=== PATIENT | female | born 1950 | race Caucasian/White ===

== ENCOUNTER → 2024-02-18 07:24 | Outpatient (CLI) | payer MEDICARE, SELFPAY ==
--- NOTE | 2024-02-18 07:29 | DI.RAD.S_ITS ---
PROCEDURE: XR CHEST 2V INDICATIONS: Dyspnea, h/o CAD s/p CABG x3 TECHNIQUE: 2 views of the chest were acquired. COMPARISON: None. FINDINGS: Surgical changes and devices: Sternotomy wires and mediastinal clips are present. Lungs and pleura: Lungs are clear. No pleural effusions or pneumothorax. Mediastinum: Mediastinal contours are normal. Heart size is normal. Bones and chest wall: No suspicious bony abnormalities. Soft tissues appear unremarkable. IMPRESSION: No acute cardiopulmonary abnormality is seen. Approved by: Darian Johnson M.D. on 02/18/2024 at 13:43
--- NOTE | 2024-02-18 08:07 | EKG_ITS ---
[place] [address] [place] [id number] Test Date: 2024-02-18 Pat Name: Elina العلي Department: [facility] Room: Gender: Female President [place]: CHACHO : 1950 Requested By: Order Number: [id number] Reading MD: Omkar Aponte Measurements Intervals [place] Rate: 67 P: 76 MN: 136 QRS: -25 QRSD: 72 T: 33 QT: 398 QTc: 420 Interpretive Statements Normal sinus rhythm Minimal voltage criteria for LVH, may be normal variant ( R in aVL ) Electronically Signed On 02-19-2024 16:16:36 PDT by Omkar Aponte
[2024-02-18 08:34] LABS: Add Manual Diff / Slide Review NO; Basophils Absolute Auto 100 /uL (0-100); Eosinophils Absolute Auto 200 /uL (0-450); Eosinophils Percent Auto 2.5 % (2-4); Hematocrit 39.7 % (36-46); Hemoglobin 13.1 g/dL (12.0-16.0); Lymphocytes Absolute Auto 2300 /uL (1100-4500); Lymphocytes Percent Auto 26.9 % (25-40); Mean Corpuscular Hemoglobin 26.9 PG (26-34); Mean Corpuscular Volume 81.6 fL (80-100); Monocytes Absolute Auto 700 /uL (0-900); Monocytes Percent Auto 7.8 % (3-14); Neutrophils Absolute Auto 5400 /uL (1500-7000); Neutrophils Percent Auto 61.8 % (50-75); Platelet Count 262 X10^3/uL (150-400); Red Blood Cell Count 4.86 X10^6/uL (4.0-5.2); Red Cell Distribution Width 15.1 % (11.6-14.8); White Blood Cell Count 8.7 X10^3/uL (4.5-11.0)
[2024-02-18 08:46] LABS: Alanine Aminotransferase 13 IU/L (<35); Albumin 3.7 g/dL (3.5-5.0); Albumin Globulin Ratio 1.1 (1.0-2.8); Alkaline Phosphatase 94 U/L (38-126); Aspartate Aminotransferase 19 IU/L (14-36); BUN Creatinine Ratio 14.7 (6-22); Bilirubin Total 0.6 mg/dL (0.2-1.3); Blood Urea Nitrogen 11 mg/dL (7-17); Calcium 8.9 mg/dL (8.4-10.2); Carbon Dioxide 25 mmol/L (22-32); Chloride 108 mmol/L (98-107); Cholesterol 144 mg/dL (140-199); Estimated Glomerular Filt Rate > 60 mL/min (>60); Globulin 3.4 g/dL (1.7-4.1); Glucose 127 mg/dL (80-110); HDL Cholesterol 44 mg/dL (40-60); HEMOLYSIS < 15 (0-50); LDL Cholesterol Calculated 76 mg/dL (<100); Potassium 4.9 mmol/L (3.4-5.1); Sodium 138 mmol/L (137-145); Total Protein 7.1 g/dL (6.3-8.2); Triglycerides 122 mg/dL (35-150)
[2024-02-18 08:54] LABS: NT-proBNP (BNP-Adult 18+) 603 pg/mL (<125)
[2024-02-18 18:11] LABS: Hep C Virus Ab w/Reflex Quant NEGATIVE s/c (NEGATIVE)
== END ==
PROVIDERS: PCP Family Medicine; Referring Provider Family Medicine; Visit Provider Family Medicine
DX: Z11.59 Encounter for screening for other viral diseases (principal); I25.10 Atherosclerotic heart disease of native coronary artery without angina pectoris; R06.00 Dyspnea, unspecified; R53.83 Other fatigue; E78.5 Hyperlipidemia, unspecified
CPT/HCPCS: 36415; 71046; 80053; 80061; 83880; 85025; 86803; 93005

== ENCOUNTER → 2024-04-20 07:51 | Outpatient (CLI) | payer MEDICARE, SELFPAY ==
--- NOTE | 2024-04-20 07:52 | DI.ECHO.S_ITS ---
[place] [facility] : : [address] : : [place] : : [id number] : : Phone: [phone] Echocardiogram Report + + :Name: CRISTOPHER DAWKINS Study Date: 04/20/2024 Height: 61 in : :[facility] ReadingLocation: Weight: 165 lb : : Gender: Female BSA: 1.7 m2 : :: 1950 Age: 73 yrs BP: 152/82 mmHg: :Reason For Study: DYSPNEA : :Ordering Physician: CARRIE, : :CALDERON Lay Performed By: Kristy Anguiano : :Referring: CALDERON BUTLER : + + Interpretation Summary The ejection fraction is estimated to be 60-65%. The mitral valve leaflets are mildly calcified. There is trace mitral regurgitation. There is mild aortic valve sclerosis. There is mild tricuspid regurgitation. The right ventricular systolic pressure is estimated to be at least 25 mmHg based on an estimated right atrial pressure of 3 mm Hg. Procedure: A two-dimensional transthoracic echocardiogram with color flow and Doppler was performed. The study quality was technically difficult. There is no prior echocardiogram noted for this patient. The patient was in sinus rhythm with heart rates between 60-76 bpm during the exam. Left Ventricle: The left ventricle is normal in size and wall thickness. The ejection fraction is estimated to be 60-65%. Left ventricular wall motion is normal. Right Ventricle: The right ventricle is normal in size and function. Atria: The left atrial size is normal. Right atrial size is normal. There is no Doppler evidence for an interatrial shunt. Mitral Valve: There is mild mitral annular calcification. The mitral valve leaflets are mildly calcified. There is trace mitral regurgitation. Aortic Valve: The aortic valve is trileaflet. The aortic valve is mildly calcified. There is mild aortic valve sclerosis. There is no aortic valve stenosis. No aortic regurgitation is present. Tricuspid Valve: The tricuspid valve is normal in structure and function. There is mild tricuspid regurgitation. The right ventricular systolic pressure is estimated to be at least 25 mmHg based on an estimated right atrial pressure of 3 mm Hg. Pulmonic Valve: The pulmonic valve leaflets are thin and pliable; valve motion is normal. There is trace pulmonic regurgitation. Great Vessels: The aortic root is normal size. The dimensions of the ascending aorta are normal. The IVC is of normal diameter and collapses greater than 50% with a sniff. This suggests a low right atrial pressure of 3 mm Hg. Pericardium/ Pleura There is no pericardial effusion. There is no pleural effusion. MMode/2D Measurements & Calculations LVIDd: 4.2 cm LVOT diam: 2.0 cm LVIDs: 2.7 cm Ao root diam: 2.9 cm FS: 34.5 % asc Aorta Diam: 3.2 cm EPSS: 0.73 cm Ao Arch Diam (Prox Trans): 1.5 cm IVSd: 0.98 cm LVPWd: 0.85 cm LV powell. diameter/BSA (cm/m^2): 2.4 LV sys. diameter/BSA (cm/m^2): 1.6 LA A2 area: 12.9 cm2 RA long axis: 5.0 cm LA A4 area: 16.3 cm2 RA area: 13.5 cm2 LA length (vol): 5.1 cm RA vol: 30.6 ml LA vol: 35.1 ml RA : 17.6 ml/m2 LA vol index: 20.1 ml/m2 IVC diam: 1.1 cm RVD1 (basal): 2.7 cm RVD2 (mid): 2.4 cm TAPSE: 1.6 cm Doppler Measurements & Calculations Ao V2 max: 183.5 cm/sec LVOT Max Vivek: 110.9 cm/sec Ao V2 mean: 127.2 cm/sec LV V1 max P.9 mmHg Ao max P.5 mmHg LV V1 VTI: 25.2 cm Ao mean P.3 mmHg MIGUEL(I,D): 2.0 cm2 Ao V2 VTI: 39.1 cm MIGUEL(V,D): 1.8 cm2 sev ratio: 0.65 MIGUEL indexed to BSA (cm^2/m^2): 1.1 MV E max vivek: 79.7 cm/sec TR max vivek: 231.9 cm/sec MV A max vivek: 85.5 cm/sec TR max P.5 mmHg MV E/A: 0.93 PA V2 max: 90.4 cm/sec Med Peak E' Vivek: 4.1 cm/sec PA V2 mean: 62.4 cm/sec E/E' med: 19.5 PA mean P.7 mmHg Lat Peak E' Vivek: 8.1 cm/sec PA pr(Accel): 13.9 mmHg E/E' lat: 9.8 E/e' average: 14.6 MV dec time: 0.23 sec MVA(VTI): 2.4 cm2 MV V2 mean: 61.7 cm/sec SV(LVOT): 76.7 ml MV mean P.7 mmHg MV V2 VTI: 32.0 cm Reading Physician:09:41 AM
== END ==
LOC: ECHO 07:51
PROVIDERS: PCP Family Medicine; Referring Provider Family Medicine; Visit Provider Family Medicine
DX: I08.3 Combined rheumatic disorders of mitral, aortic and tricuspid valves (principal); I25.10 Atherosclerotic heart disease of native coronary artery without angina pectoris; E78.5 Hyperlipidemia, unspecified; R06.00 Dyspnea, unspecified; R53.83 Other fatigue; Z95.1 Presence of aortocoronary bypass graft
CPT/HCPCS: 93306

== ENCOUNTER → 2024-05-26 08:06 | Outpatient (CLI) | payer MEDICARE, SELFPAY | PROVIDERS: PCP Family Medicine; Referring Provider Family Medicine; Visit Provider Family Medicine | DX: J45.901 Unspecified asthma with (acute) exacerbation (principal); J43.8 Other emphysema; R06.02 Shortness of breath; J44.9 Chronic obstructive pulmonary disease, unspecified; F17.210 Nicotine dependence, cigarettes, uncomplicated | CPT/HCPCS: 94060; 94726; 94729 ==

== ENCOUNTER → 2024-06-29 10:57 | Outpatient (CLI) | payer MEDICARE, SELFPAY ==
--- NOTE | 2024-06-29 10:58 | DI.CT.S_ITS ---
PROCEDURE: CT CHEST WO CON INDICATIONS: Dyspnea TECHNIQUE: Noncontrast 5 mm thick sections acquired from the pulmonary apices to the posterior costophrenic angles. 1 mm lung window, 5 mm thick coronal and sagittal and 7 mm axial MIP reformats were then acquired. For radiation dose reduction, the following was used: automated exposure control, adjustment of mA and/or kV according to patient size. COMPARISON: None. FINDINGS: Image quality: Diagnostic. Lower Neck: No enlarged lymph nodes. Thyroid: No thyroid nodules which require sonographic follow up, per consensus guidelines. Axillae: No enlarged lymph nodes. Chest Wall: Moderate size subxiphoid hernia containing fat. The neck measures 2 centimeter and the sac measures 2.9 x 3.9 centimeter. Bones: Unremarkable. Lungs and Pleura: No pneumothorax or pleural effusions. A few pulmonary micro nodules are present period index nodule measures 2 millimeters in the right lung apex (series 3, image 66). Pleural parenchymal bands in the lung bases. Juxtapleural nodules with smooth margins, favoring benign intrapulmonary lymph nodes. Heart: Heart size is enlarged, with three-vessel coronary artery calcifications and stents. No pericardial effusion. A CABG is present. Thoracic Vessels: The aorta and pulmonary arteries demonstrate normal size. Mediastinum and Olamide: No enlarged lymph nodes. Esophagus: No wall thickening. No hiatal hernia. Upper Abdomen: Cholelithiasis without wall thickening or adjacent fat stranding to suggest acute cholecystitis. IMPRESSION: No findings to explain the patient's dyspnea. Pulmonary micronodules. Consider 12 month follow-up if at high risk for developing lung cancer, per Fleischner Society guidelines. Moderate size subxiphoid hernia containing fat. Cholelithiasis without wall thickening or adjacent fat stranding to suggest acute cholecystitis. Dictated by: Caleb Muro M.D. on 06/29/2024 at 11:46 Approved by: Caleb Muro M.D. on 06/29/2024 at 11:51
== END ==
PROVIDERS: PCP Family Medicine; Referring Provider Student in an Organized Health Care Education/Training Program; Visit Provider Student in an Organized Health Care Education/Training Program
DX: K43.9 Ventral hernia without obstruction or gangrene (principal); R91.8 Other nonspecific abnormal finding of lung field; R06.00 Dyspnea, unspecified; I51.7 Cardiomegaly; I25.10 Atherosclerotic heart disease of native coronary artery without angina pectoris; K80.20 Calculus of gallbladder without cholecystitis without obstruction; Z95.1 Presence of aortocoronary bypass graft
CPT/HCPCS: 71250

== ENCOUNTER → 2024-07-01 08:44 | Outpatient (CLI) | payer MEDICARE, SELFPAY ==
--- NOTE | 2024-07-01 08:46 | EKG_ITS ---
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
== END ==
PROVIDERS: PCP Family Medicine; Referring Provider Family Medicine; Visit Provider Family Medicine
DX: I49.9 Cardiac arrhythmia, unspecified (principal); I25.10 Atherosclerotic heart disease of native coronary artery without angina pectoris; Z95.1 Presence of aortocoronary bypass graft; I10 Essential (primary) hypertension
CPT/HCPCS: 93005

== ENCOUNTER 2024-07-08 13:07 | Observation (INO) | payer MEDICARE, SELFPAY ==
[2024-07-08] VITALS (38 sets, daily range): BP systolic 96–146; BP diastolic 54–95; PULSE 64–140; RESP 19–40; TEMP 36.9; O2SAT 94–99; BMI 32.0; BMI 32.3
--- NOTE | 2024-07-08 13:23 | DI.RAD.S_ITS ---
PROCEDURE: XR CHEST 1V INDICATIONS: chest pain TECHNIQUE: One view of the chest was acquired. COMPARISON: [facility], CR, XR CHEST 2V, 02/18/2024, 6:45. FINDINGS: Surgical changes and devices: Median sternotomy wires are seen. Lungs and pleura: Mild pulmonary vascular congestion is seen. No pleural effusions or pneumothorax. Mediastinum: There is tortuous thoracic aorta. Heart size is enlarged. Bones and chest wall: No suspicious bony lesions. Overlying soft tissues appear unremarkable. IMPRESSION: Cardiomegaly and mild congestion. No definite focal infiltrate. No pleural effusion or pneumothorax. Dictated by: Logan Nair M.D. on 07/08/2024 at 13:50 Approved by: Logan Nair M.D. on 07/08/2024 at 13:50
--- NOTE | 2024-07-08 13:24 | EKG_ITS ---
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
[2024-07-08 13:39] LABS: INR 1.1 (0.9-1.3); Prothrombin Time 12.6 SECONDS (9.4-12.5)
[2024-07-08 13:42] LABS: Alanine Aminotransferase 17 IU/L (<35); Albumin 3.8 g/dL (3.5-5.0); Albumin Globulin Ratio 1.1 (1.0-2.8); Alkaline Phosphatase 103 U/L (38-126); Aspartate Aminotransferase 18 IU/L (14-36); BUN Creatinine Ratio 11.5 (6-22); Bilirubin Total 0.5 mg/dL (0.2-1.3); Blood Urea Nitrogen 9 mg/dL (7-17); Carbon Dioxide 22 mmol/L (22-32); Chloride 107 mmol/L (98-107); Creatine Kinase 55 U/L (30-135); Estimated Glomerular Filt Rate > 60 mL/min (>60); Globulin 3.5 g/dL (1.7-4.1); Glucose 153 mg/dL (80-110); HEMOLYSIS < 15 (0-50); Lipase 124 U/L (23-300); Magnesium 1.8 mg/dL (1.6-2.3); PTT Partial Thromboplastin Tim 36 SECONDS (25.1-36.5); Sodium 137 mmol/L (137-145); Total Protein 7.3 g/dL (6.3-8.2)
[2024-07-08 13:43] LABS: Add Manual Diff / Slide Review NO; Basophils Absolute Auto 0 /uL (0-100); Basophils Percent Auto 0.1 % (0-2); Eosinophils Absolute Auto 100 /uL (0-450); Eosinophils Percent Auto 1.6 % (2-4); Hematocrit 38.1 % (36-46); Hemoglobin 12.3 g/dL (12.0-16.0); Lymphocytes Absolute Auto 2500 /uL (1100-4500); Mean Corpuscular HGB Conc 32.3 % (30-36); Mean Corpuscular Hemoglobin 25.9 PG (26-34); Mean Corpuscular Volume 80.3 fL (80-100); Monocytes Absolute Auto 800 /uL (0-900); Monocytes Percent Auto 8.2 % (3-14); Neutrophils Absolute Auto 5800 /uL (1500-7000); Neutrophils Percent Auto 63.1 % (50-75); Platelet Count 349 X10^3/uL (150-400); Red Blood Cell Count 4.75 X10^6/uL (4.0-5.2); Red Cell Distribution Width 15.3 % (11.6-14.8); White Blood Cell Count 9.2 X10^3/uL (4.5-11.0)
[2024-07-08 13:54] LABS: NT-proBNP (BNP-Adult 18+) 3760 pg/mL (<125); Troponin I < 0.012 ng/mL (0.01-0.034)
[2024-07-08] MEDS: dilTIAZem 25 MG/5 ML SDV 10 MG IV (14:08)
[2024-07-08] MEDS: ACETAMINOPHEN 325 MG TABLET 650 MG PO (14:09)
--- NOTE | 2024-07-08 15:05 | ED.ARRPALP ---
HPI - Arrhythmia/Palpitations General Chief Complaint: Arrhythmia/Palpitations Stated Complaint: sent by Dr Seals for AFIB Time Seen by Provider: 07/08/24 14:02 Source: patient and RN notes reviewed Mode of arrival: Ambulatory Limitations: no limitations History of Present Illness HPI narrative: 73-year-old female history of type 2 diabetes, coronary artery disease with three-vessel CABG, dyslipidemia, GERD on aspirin 81 mg who presents for atrial fibrillation. Patient states had an outpatient EKG she has had shortness of breath for the past. Patient EKG was found to be AFib RVR and she was sent to the ED. patient states she was just had increasing exhaustion, shortness of breath she states nothing really seems to exacerbate it but actually immunized make it worse. She describes some orthopnea. She has had some chest discomfort in the past although none in the last day. Denies fevers or chills. No swelling of her extremities. She can sometimes feel her heart rate is irregular states she thought that she had a cardiac arrhythmia but had never been captured. Patient states home medications include metoprolol twice daily, gabapentin, prescription version Prilosec and aspirin 81 mg daily. States she had a three-vessel CABG 10 or 11 years ago at [facility]. Denies any drug allergies. No regular tobacco use, no regular alcohol or recreational drugs. Dr. Seals is her primary care physician. She has a appointment set up for July [address] Korey june. Related Data Home Medications Medication Instructions Recorded Confirmed evolocumab 140 mg/mL subcutaneous mg SUBCUT 03/15/24 07/01/24 syringe (Repatha Syringe) metoprolol tartrate 25 mg tablet 25 mg PO BID 03/15/24 07/01/24 omeprazole 20 mg capsule,delayed 20 mg PO BID 03/15/24 07/01/24 release cetirizine 10 mg chewable tablet 10 mg PO DAILY 04/26/24 07/01/24 Previous Rx's Medication Instructions Recorded gabapentin 300 mg capsule 600 mg (2 x 300 mg) PO BID #360 04/11/24 caps olopatadine 0.2 % eye drops 1 drp EYE-BOTH DAILY #2.5 mL 04/26/24 fluticasone propionate 50 1 spray intranasal BID #16 grams 05/27/24 mcg/actuation nasal spray,suspension (Flonase Allergy Relief) Allergies Allergy/AdvReac Type Severity Reaction Status Date / Time No Known Drug Allergies Allergy Unverified 07/01/24 07:58 Review of Systems Review of Systems ROS Unobtainable: All systems reviewed & are unremarkable except as noted in HPI and below Patient History Medical History Dyspnea Surgical History History of cardiac catheterization (11/2010) History of appendectomy History of hysterectomy (~1987) S/P CABG x 3 (03/09/14) History of carpal tunnel release of both wrists Social History marital status: number of children: 3 household members: spouse lives independently: Yes Smoking Status: Current some day smoker Tobacco: How many years used: 5 alcohol intake: current (rare) substance use type: does not use Smoking Status: Current some day smoker tobacco type: cigarettes Substance Use Type: does not use Exam Narrative Exam Narrative: GENERAL: Alert and oriented x three, well-appearing elderly female in mild distress HEENT: Head normocephalic, atraumatic, EOMI, pupils reactive, face symmetric, moist mucous membranes NECK: Supple, full range of motion CARDIOVASCULAR: Irregularly irregular and tachycardic rate and rhythm without murmurs, rubs or gallops. No edema bilateral lower extremities. RESPIRATORY: Breath sounds equal bilaterally, no wheezes rales or rhonchi. ABDOMEN: Soft, nontender. Normoactive bowel sounds all 4 quadrants. No guarding or rebound, rigidity, no mass : No CVA tenderness EXTREMITIES: Normal range of motion, no clubbing or edema. Neurovascularly intact NEUROLOGICAL: Cranial nerves II through XII grossly intact. Moving all extremities SKIN: Warm, dry, no petechiae, no rashes or lesions. Initial Vital Signs Initial Vital Signs: Vital Signs Pulse Rate 136 H 07/08/24 13:14 Respiratory Rate 19 07/08/24 13:14 Pulse Oximetry 96 07/08/24 13:14 Course Orders Ordered: ED Orders 07/08/24 13:20 Complete Blood Count AUTO DIFF Stat Comprehensive Metabolic Panel Stat Lipase Stat Magnesium Stat NT-proBNP (BNP-Adult 18+) Stat PTT Partial Thromboplastin Dannie Stat Prothrombin Time INR Stat Troponin & CK Cardiac Panel Stat 07/08/24 13:23 XR chest 1V Stat EKG-12 Lead Stat 07/08/24 15:13 EKG-12 Lead Stat Diltiazem HCl 125 mg/ Sodium (Chloride) 125 mls @ 5 mls/hr IV TITRATE MELLO; Protocol Last Admin: 07/08/24 16:09 Dose: 5 mg/hr, 5 mls/hr Discontinued Medications Acetaminophen (Acetaminophen 325 Mg Tablet) 650 mg PO NOW ONE Stop: 07/08/24 14:03 Last Admin: 07/08/24 14:09 Dose: 650 mg Documented By: NEHA Aspirin (Aspirin 81 Mg Chew Tab) 324 mg PO NOW ONE Stop: 07/08/24 13:24 Last Admin: 07/08/24 14:25 Dose: Not Given Documented By: NEHA Diltiazem HCl (Diltiazem 25 Mg/5 Ml Sdv) 10 mg IV NOW ONE Stop: 07/08/24 14:03 Last Admin: 07/08/24 14:08 Dose: 10 mg Documented By: NEHA Diltiazem HCl (Diltiazem Sr 60 Mg) 60 mg PO NOW ONE Stop: 07/08/24 15:07 Last Admin: 07/08/24 15:15 Dose: 60 mg Documented By: NEHA Vital Signs Vital signs: Vital Signs - 8 hr 07/08/24 13:14 07/08/24 13:15 07/08/24 13:15 Temperature Pulse Rate 136 H 140 H Respiratory Rate 19 20 Blood Pressure 120/95 H Pulse Oximetry 96 96 Oxygen Delivery Method 07/08/24 13:16 07/08/24 13:30 07/08/24 13:30 Temperature 98.4 F Pulse Rate 138 H 131 H Respiratory Rate 20 40 H Blood Pressure 120/95 H 122/89 Pulse Oximetry 95 98 Oxygen Delivery Method Room Air 07/08/24 14:00 07/08/24 14:00 07/08/24 14:08 Temperature Pulse Rate 121 H 136 H Respiratory Rate 30 H Blood Pressure 121/64 121/64 Pulse Oximetry 94 Oxygen Delivery Method 07/08/24 14:30 07/08/24 14:30 07/08/24 15:00 Temperature Pulse Rate 90 Respiratory Rate 31 H Blood Pressure 116/72 117/80 Pulse Oximetry 97 Oxygen Delivery Method Room Air 07/08/24 15:00 07/08/24 15:30 07/08/24 15:30 Temperature Pulse Rate 100 H 99 H Respiratory Rate 26 H 27 H Blood Pressure 126/76 Pulse Oximetry 97 97 Oxygen Delivery Method 07/08/24 16:00 07/08/24 16:00 07/08/24 16:09 Temperature Pulse Rate 117 H 117 H Respiratory Rate 29 H Blood Pressure 119/75 119/75 Pulse Oximetry 98 Oxygen Delivery Method MDM - Arrhythmia/Palpitations Lab Data 07/08/24 13:20 07/08/24 13:20 Labs: Lab Results 07/08/24 Range/Units 13:20 WBC 9.2 (4.5-11.0) X10^3/uL RBC 4.75 (4.0-5.2) X10^6/uL Hgb 12.3 (12.0-16.0) g/dL Hct 38.1 (36-46) % MCV 80.3 (80-100) fL MCH 25.9 L (26-34) PG MCHC 32.3 (30-36) % RDW 15.3 H (11.6-14.8) % Plt Count 349 (150-400) X10^3/uL Neut % (Auto) 63.1 (50-75) % Lymph % (Auto) 27.0 (25-40) % [place] % (Auto) 8.2 (3-14) % Eos % (Auto) 1.6 L (2-4) % Baso % (Auto) 0.1 (0-2) % Neut # (Auto) 5800 (6549-2542) /uL Lymph # (Auto) 2500 (0039-7078) /uL [place] # (Auto) 800 (0-900) /uL Eos # (Auto) 100 (0-450) /uL Baso # (Auto) 0 (0-100) /uL PT 12.6 H (9.4-12.5) SECONDS INR 1.1 (0.9-1.3) APTT 36 (25.1-36.5) SECONDS Sodium 137 (137-145) mmol/L Potassium 4.0 (3.4-5.1) mmol/L Chloride 107 (98-107) mmol/L Carbon Dioxide 22 (22-32) mmol/L BUN 9 (7-17) mg/dL Creatinine 0.78 (0.52-1.04) mg/dL Estimated GFR > 60 (>60) mL/min BUN/Creatinine Ratio 11.5 (6-22) Glucose 153 H (80-110) mg/dL Calcium 9.0 (8.4-10.2) mg/dL Magnesium 1.8 (1.6-2.3) mg/dL Total Bilirubin 0.5 (0.2-1.3) mg/dL AST 18 (14-36) IU/L ALT 17 (<35) IU/L Alkaline Phosphatase 103 (38-126) U/L Total Creatine Kinase 55 (30-135) U/L Troponin I < 0.012 (0.01-0.034) ng/mL NT-Pro-B Natriuret Pep 3760 H (<125) pg/mL Total Protein 7.3 (6.3-8.2) g/dL Albumin 3.8 (3.5-5.0) g/dL Globulin 3.5 (1.7-4.1) g/dL Albumin/Globulin Ratio 1.1 (1.0-2.8) Lipase 124 (23-300) U/L Imaging Data Chest x-ray: Radiologist's Impresson: [address] [address] XRay Report Signed Patient: Elina العلي MR#: [id number] : 1950 Acct:[id number] Age/Sex: 73 / F Date of Service: 07/08/24 Loc: ED Accession Number: [id number] Procedure: XR chest 1V Ordering Provider: Lana Yap D.O. PROCEDURE: XR CHEST 1V INDICATIONS: chest pain TECHNIQUE: One view of the chest was acquired. COMPARISON: [facility], CR, XR CHEST 2V, 02/18/2024, 6:45. FINDINGS: Surgical changes and devices: Median sternotomy wires are seen. Lungs and pleura: Mild pulmonary vascular congestion is seen. No pleural effusions or pneumothorax. Mediastinum: There is tortuous thoracic aorta. Heart size is enlarged. Bones and chest wall: No suspicious bony lesions. Overlying soft tissues appear unremarkable. IMPRESSION: Cardiomegaly and mild congestion. No definite focal infiltrate. No pleural effusion or pneumothorax. Dictated by: Logan Nair M.D. on 07/08/2024 at 13:50 Approved by: Logan Nair M.D. on 07/08/2024 at 13:50 ECG Data Attestation: I personally reviewed and interpreted this ECG as follows: Interpretation: Atrial fib with a rapid ventricular response with a rate of 120, QRS is 74 QTC of 409, no acute ST elevation or depression noted. Repeat EKG shows AFib rate 84, QRS is 74 QTC of 434, no acute ST elevation or depression noted. MDM Narrative Medical decision making narrative: 73-year-old female presents for AFib RVR with a complaint of shortness of breath and irregular heartbeat for some time, patient is not a candidate for cardioversion as unknown onset her EKG was approximately a week ago on 07/01/2024 which showed her initial atrial fibrillation and she describes systems for some time. Patient did respond to initial dose of IV diltiazem but then had recurrence into tachycardia. Labs show white count of 9.2 hemoglobin of 12.3 platelets of 349. Coags are negative electrolytes are normal, BUN is 9, creatinine 0.78, Mag is 1.8, potassium is 4. Troponins less than 0.012 with a BNP of 3760, it was 603 in January. Chest x-ray shows cardiomegaly and mild congestion, no focal infiltrates no pleural effusion or pneumothorax. EKG shows AFib RVR, patient did have improvement in rate with medication but then recurred into RVR. Patient received 10 mg diltiazem had some improvement given a dose of oral diltiazem but patient had reoccurrence back into the 120s and started on drip. Consultation with Dr. Seals for admission for atrial fibrillation with RVR and CHF. Patient accepted for inpatient admission on diltiazem drip. Critical Care Time Critical Care Time Critical Care Time: Yes Total Critical Care Time: 25 Attestation: The high probability of a clinically significant, sudden or life threatening deterioration of the cardiac and pulmonary system(s) required my full and direct attention, intervention and personal management. The aggregate critical care time was [--] minutes. This time is in addition to time spent performing reported procedures but includes the following: [x] Data Review and interpretation [x] Patient assessment and monitoring of vital signs [x] Documentation [x] Medication orders and management Discharge Plan Departure Patient Disposition: Admitted As Inpatient Clinical Impression: Atrial fibrillation with rapid ventricular response, CHF exacerbation Admit Date/Time: 07/08/24 16:12 Admit Provider: Jacob Seals
--- NOTE | 2024-07-08 15:06 | PC.NURSE ---
Patient 8 beat Alissa ALLAN notified. getting repeat EKG
--- NOTE | 2024-07-08 15:13 | EKG_ITS ---
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
[2024-07-08] MEDS: dilTIAZem SR 60 MG PO (15:15)
[2024-07-08] MEDS: dilTIAZem 125 MG in SODIUM CHLORIDE 0.9% 100 ML IV (16:09)
--- NOTE | 2024-07-08 17:54 | PC.NURSE ---
Pt arrived via gurney from ED, connected to monitoring equipment, Dilt gtt infusing at 5mL/hr, HR 110-120's BP 169/110, titrated gtt to 7mL per protocol. Pt A/Ox4 able to slide from gurney to bed, oriented to room and call light system, bed low and locked, alarm on, no further pt needs at this time
--- NOTE | 2024-07-08 17:59 | P.HP_ITS ---
History of Present Illness History of Present Illness Date Patient Seen: 07/08/24 Time Patient Seen: 17:59 Chief complaint: sent by Dr Seals for AFIB Narrative: Elina is a 73-year-old female with a h/o CAD (s/p CABG x3), hyperlipidemia, GERD, allergic rhinitis, worsening SOB with dyspnea on exertion over the past year. Outpatient workup included initial EKG demonstrating normal sinus rhythm, CXR negative for consolidation, effusion, or pneumothorax. Recent NT proBNP 603 (age-appropriate cut off 900). 04/20 TTE demonstrated LVEF 60-65%, mild mitral valve calcification and regurgitation, mild aortic valve sclerosis, and mild tricuspid regurgitation. 05/27 PFT demonstrated moderate restrictive lung disease with no bronchodilator response and preserved alveolar gas exchange. 06/29 CT chest without findings to explain patient's dyspnea. She was seen in clinic 1 week ago to follow-up PFTs as part of evaluation for her SOB. At that time she was noted to have an irregular rhythm and sent for an EKG, which demonstrated AFib with RVR. She presented to the ER today to evaluate for possible cardioversion, but was deemed to be too high-risk for embolism due to presence of AFib for over 24 hours. She has an appointment with new pathological technician (Dr. Nair) set up for 07/22. ER workup notable for WBC 9.2, hemoglobin 12.3, platelets 349, coags and electrolytes normal, creatinine 0.78, troponin negative, elevated BNP 3760 (was 603 in January). CXR shows cardiomegaly and mild congestion, no focal infiltrates, pleural effusion, or pneumothorax. EKG again demonstrates AFib with RVR. Patient did have some rate improvement with oral medication but reverted to RVR and was started on diltiazem drip and was admitted for pharmacologic rate/rhythm control. [facility] Medical History Dyspnea Surgical History History of cardiac catheterization (11/2010) History of appendectomy History of hysterectomy (~1987) S/P CABG x 3 (03/09/14) History of carpal tunnel release of both wrists Social History marital status: number of children: 3 household members: spouse lives independently: Yes Smoking Status: Current some day smoker Tobacco: How many years used: 5 alcohol intake: current substance use type: does not use Meds Home Medications and Allergies Home Medications Medication Instructions Recorded Confirmed Type metoprolol tartrate 25 mg tablet 25 mg PO BID 03/15/24 07/08/24 History omeprazole 20 mg capsule,delayed 20 mg PO BID 03/15/24 07/08/24 History release gabapentin 300 mg capsule 600 mg (2 x 300 mg) PO BID #360 04/11/24 07/08/24 Rx caps cetirizine 10 mg chewable tablet 10 mg PO DAILY 04/26/24 07/08/24 History fluticasone propionate 50 1 spray intranasal BID #16 grams 05/27/24 07/08/24 Rx mcg/actuation nasal spray,suspension (Flonase Allergy Relief) aspirin 81 mg tablet,delayed 81 mg PO DAILY thinner 07/08/24 07/08/24 History release evolocumab 140 mg/mL subcutaneous 140 mg SUBCUT 1XD 07/08/24 07/08/24 History syringe (Repatha Syringe) olopatadine 0.2 % eye drops 1 drp EYE-BOTH DAILY PRN Dry Eye(S) 07/08/24 07/08/24 History apixaban 5 mg tablet (Eliquis) 5 mg PO BID #60 tabs 07/09/24 Rx diltiazem HCl 120 mg capsule,24 120 mg PO QAM #30 caps 07/09/24 Rx hr,extended release Allergies Allergy/AdvReac Type Severity Reaction Status Date / Time No Known Drug Allergies Allergy Unverified 07/01/24 07:58 Review of Systems Review of Systems ROS: Yes All systems reviewed with the patient and are negative except as otherwise documented Exam Vital Signs (past 8 hours): - 07/08/24 13:14 07/08/24 13:15 07/08/24 13:15 Temperature Pulse Rate 136 H 140 H Respiratory Rate 19 20 Blood Pressure 120/95 H Pulse Oximetry 96 96 Oxygen Delivery Method 07/08/24 13:16 07/08/24 13:30 07/08/24 13:30 Temperature 98.4 F Pulse Rate 138 H 131 H Respiratory Rate 20 40 H Blood Pressure 120/95 H 122/89 Pulse Oximetry 95 98 Oxygen Delivery Method Room Air 07/08/24 14:00 07/08/24 14:00 07/08/24 14:08 Temperature Pulse Rate 121 H 136 H Respiratory Rate 30 H Blood Pressure 121/64 121/64 Pulse Oximetry 94 Oxygen Delivery Method 07/08/24 14:30 07/08/24 14:30 07/08/24 15:00 Temperature Pulse Rate 90 Respiratory Rate 31 H Blood Pressure 116/72 117/80 Pulse Oximetry 97 Oxygen Delivery Method Room Air 07/08/24 15:00 07/08/24 15:30 07/08/24 15:30 Temperature Pulse Rate 100 H 99 H Respiratory Rate 26 H 27 H Blood Pressure 126/76 Pulse Oximetry 97 97 Oxygen Delivery Method 07/08/24 16:00 07/08/24 16:00 07/08/24 16:09 Temperature Pulse Rate 117 H 117 H Respiratory Rate 29 H Blood Pressure 119/75 119/75 Pulse Oximetry 98 Oxygen Delivery Method 07/08/24 16:27 07/08/24 16:30 07/08/24 16:30 Temperature Pulse Rate 118 H Respiratory Rate 24 Blood Pressure 112/82 Pulse Oximetry 99 Oxygen Delivery Method Room Air 07/08/24 17:43 07/08/24 17:46 07/08/24 17:46 Temperature Pulse Rate 106 H 116 H Respiratory Rate 28 H 37 H Blood Pressure 146/69 H Pulse Oximetry 97 96 Oxygen Delivery Method Oxygen Delivery Method Room Air Narrative Exam Narrative: General: Pleasant, NAD HEENT: NC/AT, EOMI, moist membranes CV: Tachycardic, irregularly irregular rhythm, normal S1-S2, 2/6 systolic murmur at RUSB Resp: CTAB, comfortable WOB Abd: Soft, NTND, +BS Ext: No edema Skin: Sternotomy scar on chest, no rash or lesions noted Neuro: A&O x3, moves all extremities, no focal deficits Objective Labs 07/08/24 13:20 07/09/24 05:10 Labs: Laboratory Results - last 24 hr 07/08/24 13:20 WBC 9.2 RBC 4.75 Hgb 12.3 Hct 38.1 MCV 80.3 MCH 25.9 L MCHC 32.3 RDW 15.3 H Plt Count 349 Neut % (Auto) 63.1 Lymph % (Auto) 27.0 [place] % (Auto) 8.2 Eos % (Auto) 1.6 L Baso % (Auto) 0.1 Neut # (Auto) 5800 Lymph # (Auto) 2500 [place] # (Auto) 800 Eos # (Auto) 100 Baso # (Auto) 0 PT 12.6 H INR 1.1 APTT 36 Sodium 137 Potassium 4.0 Chloride 107 Carbon Dioxide 22 BUN 9 Creatinine 0.78 Estimated GFR > 60 BUN/Creatinine Ratio 11.5 Glucose 153 H Calcium 9.0 Magnesium 1.8 Total Bilirubin 0.5 AST 18 ALT 17 Alkaline Phosphatase 103 Total Creatine Kinase 55 Troponin I < 0.012 NT-Pro-B Natriuret Pep 3760 H Total Protein 7.3 Albumin 3.8 Globulin 3.5 Albumin/Globulin Ratio 1.1 Lipase 124 Assessment & Plan Assessment and plan (1) Atrial fibrillation with rapid ventricular response: Status: Acute (2) Dyspnea: Qualifiers: Dyspnea type: dyspnea on exertion Qualified Code(s): R06.09 - Other forms of dyspnea Status: Acute (3) Type 2 diabetes mellitus: Problem details: 11/18/23 A1c: 6.3% Qualifiers: Diabetes mellitus complication status: without complication Diabetes mellitus halfway insulin use: without halfway use Qualified Code(s): E11.9 - Type 2 diabetes mellitus without complications Status: Chronic (4) CAD (coronary artery disease): Problem details: 12/03/10: Stent to RCA for unstable angina 12/23/10: stents to ostium of circumflex and obtuse marginal 1 Qualifiers: Associated angina: without angina Coronary Disease-Associated Artery/Lesion type: [place] artery [place] vs. transplanted heart: [place] heart Qualified Code(s): I25.10 - Atherosclerotic heart disease of [place] coronary artery without angina pectoris Status: Chronic (5) S/P CABG x 3: Problem details: Dr. Robertson: DAVIDSON to LAD, saphenous vein grafts to posterior descending artery and obtuse marginal Status: Acute (6) Hyperlipidemia: Qualifiers: Hyperlipidemia type: unspecified Qualified Code(s): E78.5 - Hyperlipidemia, unspecified Status: Chronic (7) GERD (gastroesophageal reflux disease): Qualifiers: Esophagitis presence: esophagitis presence not specified Qualified Code(s): K21.9 - Gastro-esophageal reflux disease without esophagitis Status: Chronic (8) Chronic allergic rhinitis: Status: Chronic Assessment & Plan narrative: 73-year-old female with a h/o CAD (s/p CABG x3), hyperlipidemia, GERD, allergic rhinitis, worsening SOB and Aponte over past year found to be in AFib with RVR. #AFib with RVR #SOB #dyspnea on exertion Likely PAF over last 1-1.5 years causing worsening SOB and dyspnea over this timeframe. Temporarily responsive to p.o. medication but requiring IV drip to achieve some degree of rate control. -diltiazem gtt; monitor for response and consider switch to amiodarone if rate/rhythm control not achieved -telemetry -[id number] score of 4 (age, female sex, CAD, HTN), start Eliquis 5 mg b.i.d. #CAD s/p CABG x3 #hyperlipidemia -metoprolol 25 mg IR b.i.d. -hold home Repatha #GERD -pantoprazole 20 mg daily #allergic rhinitis -fluticasone spray PRN Dispo: ICU Diet: Heart Healthy GI ppx: PPI DVT ppx: Eliquis Code: Full PCP: Arnel MDM: Time-Based Coding :: 45 minutes spent with patient and on the chart (including review of chart, obtaining history, exam, reviewing outside data, placing orders, documenting exam and treatment plan, and counseling patient) on 07/08/2024. PROFEE Charge Codes Critical Care: [id number]
[2024-07-08 19:42] LABS: MRSA (Nasal) PCR NOT DETECTED (Not Detect)
[2024-07-08] MEDS: FLUTICASONE 120 SPRAY/16 GM SPRAY.SUSP NASAL (21:47)
[2024-07-08] MEDS: GABAPENTIN 300 MG CAPSULE 600 MG PO (21:47)
[2024-07-08] MEDS: APIXABAN 5 MG TABLET PO (21:48)
[2024-07-08] MEDS: METOPROLOL IR 25 MG TABLET PO (21:48)
[2024-07-09] VITALS (17 sets, daily range): BP systolic 85–117; BP diastolic 49–71; PULSE 20–60; RESP 17–40; TEMP 36.1–36.2; O2SAT 97–98
[2024-07-09] MEDS: ACETAMINOPHEN 325 MG TABLET 650 MG PO (00:33)
[2024-07-09] MEDS: dilTIAZem 125 MG in SODIUM CHLORIDE 0.9% 100 ML 15 MG IV (00:48)
--- NOTE | 2024-07-09 03:26 | PC.NURSE ---
pt c/o headache and was medicated w/ tylenol; up to recliner per request; pt c/o mild nausea; sbp-86; diltiazem decreased to 10mg/hr, then 15 minutes later decreased to 5mg/hr; at 5mg/hr, HR 50s and b/p 97/54(72); pt reports feeling better, with nausea relieved
[2024-07-09 05:58] LABS: BUN Creatinine Ratio 15.2 (6-22); Blood Urea Nitrogen 14 mg/dL (7-17); Calcium 8.9 mg/dL (8.4-10.2); Carbon Dioxide 23 mmol/L (22-32); Chloride 104 mmol/L (98-107); Estimated Glomerular Filt Rate > 60 mL/min (>60); Glucose 141 mg/dL (80-110); HEMOLYSIS < 15 (0-50); Potassium 4.3 mmol/L (3.4-5.1); Sodium 133 mmol/L (137-145)
[2024-07-09 06:07] LABS: NT-proBNP (BNP-Adult 18+) 2380 pg/mL (<125)
[2024-07-09] MEDS: PANTOPRAZOLE DR 20 MG TABLET PO ×2 (06:11→08:30)
--- NOTE | 2024-07-09 06:52 | PC.NURSE ---
0647--pt converted from a-fib to NSR/sinus marlen; EKG ordered
--- NOTE | 2024-07-09 06:58 | EKG_ITS ---
[facility] [address] [place] [address] Test Date: 2024-07-09 Pat Name: Elina العلي Department: [facility] Room: 227 Gender: Female Corporate Associate: katrina : 1950 Requested By: Order Number: [id number] Reading MD: Michelet King MD Measurements Intervals [place] Rate: 53 P: 80 W[place]: 214 QRS: -24 QRSD: 78 T: -5 QT: 464 QTc: 435 Interpretive Statements Sinus bradycardia with 1st degree AV block Minimal voltage criteria for LVH, may be normal variant ( R in aVL ) Anterior infarct , age undetermined Electronically Signed On 07-10-2024 13:40:10 PST by Michelet King MD
[2024-07-09] MEDS: METOPROLOL IR 25 MG TABLET PO (08:29)
[2024-07-09] MEDS: APIXABAN 5 MG TABLET PO (08:29)
[2024-07-09] MEDS: GABAPENTIN 300 MG CAPSULE 600 MG PO (08:29)
[2024-07-09] MEDS: ASPIRIN EC 81 MG TABLET PO (08:30)
[2024-07-09] MEDS: FLUTICASONE 120 SPRAY/16 GM SPRAY.SUSP NASAL (08:30)
[2024-07-09] MEDS: dilTIAZem 30 MG TABLET 120 MG PO (09:48)
--- NOTE | 2024-07-09 10:41 | CM.DANOTE ---
B DCP Assessment Note Pt is a 73yo F here with afib with RVR and CHF. PCP Arnel Payer [employer] [facility] advantage and self pay [employer] TECHNICIAN reviewed EMR. per chart, pt lives in [place] with spouse. Emergency contact is listed at dtr [place] ([phone]). per RN report, pt indep at baseline, no CM needs. Per Dr. Seals, plan to dc pt home today, no CM needs P: pt to dc home today with OP f/u recommended, no identified barriers to safe dc home at this time. CM team will continue to follow as needed SKYLER Kilpatrick Discharge Planning/Care Management CM Discharge Assessment Start: 07/09/24 10:35 Freq: Status: Active Protocol: Document 07/09/24 10:35 SL (Rec: 07/09/24 10:40 SL [id number]) Discharge Planning Assessment Assigned Box Toe Maker SKYLER Neely DPOA/Assigned Designee Name Dixie lisset Contact Information [phone] Advance Directives? No History Provided By Patient,Medical Record Prior Living Arrangements House Household Members spouse Independent with ADL's Yes Is patient alert and oriented? Yes Barriers to Discharge No Discharge Plan Home Referrals Initiated None needed Review Status In Process Please Provide Date Initial DC 07/09/24 Assessment Was Performed Next Review Type Continued Stay Review
--- NOTE | 2024-07-09 11:20 | PM.DS.1 ---
History of Present Illness History of Present Illness Date Patient Seen: 07/09/24 Time Patient Seen: 10:00 Chief complaint: sent by Dr Saels for AFIB Narrative: Elina is a 73-year-old female with a h/o CAD (s/p CABG x3), hyperlipidemia, GERD, allergic rhinitis, worsening SOB with dyspnea on exertion over the past year. Outpatient workup included initial EKG demonstrating normal sinus rhythm, CXR negative for consolidation, effusion, or pneumothorax. Recent NT proBNP 603 (age-appropriate cut off 900). 04/20 TTE demonstrated LVEF 60-65%, mild mitral valve calcification and regurgitation, mild aortic valve sclerosis, and mild tricuspid regurgitation. 05/27 PFT demonstrated moderate restrictive lung disease with no bronchodilator response and preserved alveolar gas exchange. 06/29 CT chest without findings to explain patient's dyspnea. She was seen in clinic 1 week ago to follow-up PFTs as part of evaluation for her SOB. At that time she was noted to have an irregular rhythm and sent for an EKG, which demonstrated AFib with RVR. She presented to the ER today to evaluate for possible cardioversion, but was deemed to be too high-risk for embolism due to presence of AFib for over 24 hours. She has an appointment with new religious education coordinator (Dr. Nair) set up for 07/22. ER workup notable for WBC 9.2, hemoglobin 12.3, platelets 349, coags and electrolytes normal, creatinine 0.78, troponin negative, elevated BNP 3760 (was 603 in January). CXR shows cardiomegaly and mild congestion, no focal infiltrates, pleural effusion, or pneumothorax. EKG again demonstrates AFib with RVR. Patient did have some rate improvement with oral medication but reverted to RVR and was started on diltiazem drip and was admitted for pharmacologic rate/rhythm control. Discharge Providers Provider Date of admission: 07/08/24 16:12 Discharge Date: 07/09/24 Primary care physician: Jacob Seals MD Discharge provider: Jacob Seals MD Summary Hospital Course Discharge Diagnosis: # AFib with RVR #SOB #dyspnea #CAD s/p CABG x3 # hyperlipidemia #GERD #allergic rhinitis Hospital Course: Admitted for pharmacologic rate and rhythm control, started on diltiazem drip and eventually converted to sinus bradycardia with first-degree AV block. Patient noted palpitations resolved and somewhat improved in terms of breathing/dyspnea. She was converted to diltiazem 120 mg ER daily for oral rate/rhythm control and started on Eliquis 5 mg b.i.d. for anticoagulation. Status at Discharge Cognitive/behavioral status at discharge: at baseline, oriented Functional status at discharge: independent ambulation Overall status at discharge: patient is back to baseline Time Spent with Patient Time spent: Greater than 30 minutes Exam Vital Signs (past 8 hours): - 07/09/24 04:00 07/09/24 04:00 07/09/24 05:00 Temperature 97.0 F L Pulse Rate 20 L 60 Respiratory Rate 17 23 Blood Pressure 103/51 L 111/52 L Pulse Oximetry 97 98 Oxygen Delivery Method Oxygen Flow Rate 0 0 07/09/24 06:00 07/09/24 06:00 07/09/24 07:00 Temperature Pulse Rate 59 L Respiratory Rate 23 Blood Pressure 108/65 117/56 L Pulse Oximetry 98 Oxygen Delivery Method Room Air Oxygen Flow Rate 0 07/09/24 07:00 07/09/24 08:00 07/09/24 08:00 Temperature Pulse Rate 49 L 49 L Respiratory Rate 27 H 26 H Blood Pressure 116/59 L Pulse Oximetry 98 97 Oxygen Delivery Method Oxygen Flow Rate 07/09/24 08:00 07/09/24 09:00 07/09/24 09:00 Temperature 97 F L Pulse Rate 55 L Respiratory Rate 40 H Blood Pressure 109/71 Pulse Oximetry 98 Oxygen Delivery Method Oxygen Flow Rate 07/09/24 09:48 07/09/24 10:00 07/09/24 10:00 Temperature Pulse Rate 51 L 54 L Respiratory Rate 36 H Blood Pressure 109/71 Pulse Oximetry 98 Oxygen Delivery Method Room Air Oxygen Flow Rate 07/09/24 11:00 07/09/24 11:00 Temperature Pulse Rate 52 L Respiratory Rate 30 H Blood Pressure 110/66 Pulse Oximetry 98 Oxygen Delivery Method Oxygen Flow Rate Oxygen Delivery Method Room Air Oxygen Flow Rate 0 Narrative Exam Narrative: General: Pleasant, NAD HEENT: NC/AT, EOMI, moist membranes CV: Regular rate and rhythm, normal S1-S2, 2/6 systolic murmur at RUSB Resp: CTAB, comfortable WOB Abd: Soft, NTND, +BS Ext: No edema Skin: Sternotomy scar on chest, no rash or lesions noted Neuro: A&O x3, moves all extremities, no focal deficits Objective Labs 07/08/24 13:20 07/09/24 05:10 Labs: Laboratory Results - last 24 hr 07/08/24 07/08/24 07/09/24 13:20 18:16 05:10 WBC 9.2 RBC 4.75 Hgb 12.3 Hct 38.1 MCV 80.3 MCH 25.9 L MCHC 32.3 RDW 15.3 H Plt Count 349 Neut % (Auto) 63.1 Lymph % (Auto) 27.0 [place] % (Auto) 8.2 Eos % (Auto) 1.6 L Baso % (Auto) 0.1 Neut # (Auto) 5800 Lymph # (Auto) 2500 [place] # (Auto) 800 Eos # (Auto) 100 Baso # (Auto) 0 PT 12.6 H INR 1.1 APTT 36 Sodium 137 133 L Potassium 4.0 4.3 Chloride 107 104 Carbon Dioxide 22 23 BUN 9 14 Creatinine 0.78 0.92 Estimated GFR > 60 > 60 BUN/Creatinine Ratio 11.5 15.2 Glucose 153 H 141 H Calcium 9.0 8.9 Magnesium 1.8 Total Bilirubin 0.5 AST 18 ALT 17 Alkaline Phosphatase 103 Total Creatine Kinase 55 Troponin I < 0.012 NT-Pro-B Natriuret Pep 3760 H 2380 H Total Protein 7.3 Albumin 3.8 Globulin 3.5 Albumin/Globulin Ratio 1.1 Lipase 124 Nasal Screen MRSA (PCR) Not detected [facility] Medical History Dyspnea Surgical History History of cardiac catheterization (11/2010) History of appendectomy History of hysterectomy (~1987) S/P CABG x 3 (03/09/14) History of carpal tunnel release of both wrists Social History marital status: number of children: 3 household members: spouse lives independently: Yes Smoking Status: Current some day smoker Tobacco: How many years used: 5 alcohol intake: current substance use type: does not use Discharge Assessment & Plan Assessment and Plan Assessment: 73-year-old female with a h/o CAD (s/p CABG x3), hyperlipidemia, GERD, allergic rhinitis, worsening SOB and [place] over past year admitted for AFib with RVR Plan of Treatment: #AFib with RVR #SOB #dyspnea on exertion Likely PAF over last 1-1.5 years causing/contributing worsening SOB and dyspnea over this timeframe. -diltiazem 120mg ER daily -eliquis 5 mg b.i.d. for [id number] score of 4 (age, female sex, CAD, HTN) -she has a cardiology visit scheduled with Dr. Smooth Nair on 07/22. #CAD s/p CABG x3 #hyperlipidemia -metoprolol 25 mg IR b.i.d. -Repatha #GERD -omeprazole 20 mg daily #allergic rhinitis -fluticasone spray PRN Discharge Plan Discharge Plan Patient Disposition: Home Discharge orders & Medications Prescriptions: New Eliquis 5 mg Tablet 5 mg PO BID Qty: 60 1RF diltiazem HCl 120 mg capsule,extended release 24 hr 120 mg PO QAM Qty: 30 1RF Continued omeprazole 20 mg capsule,delayed release(DR/EC) 20 mg PO BID metoprolol tartrate 25 mg tablet 25 mg PO BID cetirizine 10 mg tablet,chewable 10 mg PO DAILY gabapentin 300 mg capsule 600 mg PO BID Qty: 360 1RF aspirin 81 mg Tablet,Delayed Release (Dr/Ec) 81 mg PO DAILY olopatadine 0.2 % drops 1 drp EYE-BOTH DAILY PRN (Reason: Dry Eye(S)) Repatha Syringe 140 mg/mL syringe 140 mg SUBCUT 1XD Patient Comments: [NO ORIGINAL SIG] fluticasone propionate [Flonase Allergy Relief] 50 mcg/actuation spray,suspension 1 spray intranasal BID Qty: 16 3RF Rx Instructions: administer into each nostril Follow up/Referrals: Jacob Seals MD [Primary Care Provider] - Visit Report/Discharge Packet Stand Alone Forms: Patient Portal/API, Stroke Signs & Symptoms Discharge Data Primary Care Provider: Jacob Seals Discharges patient from system. Discharge Date/Time: 07/09/24 12:07 PROFEE Charge Codes Discharge inpatient/observation: [id number]
== END 2024-07-09 12:07 | disposition home or self-care (01) ==
LOC: ED 14:02 → AC 16:19 → ICU 07-09 10:26 → AC 07-11 07:45 → ICU 07-11 07:45
PROVIDERS: Admitting Provider Family Medicine; Emergency Provider Emergency Medicine; PCP Family Medicine; Referring Provider Emergency Medicine; Visit Provider Family Medicine
DX: I48.0 Paroxysmal atrial fibrillation (principal); R06.09 Other forms of dyspnea; E11.9 Type 2 diabetes mellitus without complications; I25.10 Atherosclerotic heart disease of native coronary artery without angina pectoris; Z95.1 Presence of aortocoronary bypass graft; E78.5 Hyperlipidemia, unspecified; K21.9 Gastro-esophageal reflux disease without esophagitis; J30.9 Allergic rhinitis, unspecified
CPT/HCPCS: 36415; 71045; 80048; 80053; 82550; 83690; 83735; 83880; 84484; 85025; 85610; 85730; 87797; 93005; 93010; 96365; 96366; 96375; 99239; 99284; 99285; 99291; G0378

== ENCOUNTER → 2024-08-05 11:03 | Outpatient (CLI) | payer MEDICARE, SELFPAY ==
[2024-07-08 17:27] VITALS: BMI 32.3
--- NOTE | 2024-08-05 11:05 | DI.RAD.S_ITS ---
PROCEDURE: XR HAND RT MIN 3V INDICATIONS: stiffness of joint of finger in right hand TECHNIQUE: 3 views of the hand(s) acquired. COMPARISON: None. FINDINGS: No acute fracture or dislocation. Mild scattered IP, PIP, and DIP joint osteoarthritis, most conspicuous at the 5th DIP joint. Subchondral cyst formation at the lunocapitate articulation. Otherwise, the joint spaces are preserved. No osseous erosions. IMPRESSION: Mild osteoarthritis of the fingers. Dictated by: Jimenez Winchester M.D. on 08/05/2024 at 13:25 Approved by: Jimenez Winchester M.D. on 08/05/2024 at 13:26
== END ==
PROVIDERS: PCP Family Medicine; Referring Provider Family Medicine; Visit Provider Family Medicine
DX: M25.641 Stiffness of right hand, not elsewhere classified (principal); M19.041 Primary osteoarthritis, right hand
CPT/HCPCS: 73130

== ENCOUNTER → 2025-01-11 07:07 | Outpatient (CLI) | payer MEDICARE, SELFPAY ==
[2024-07-08 17:27] VITALS: BMI 32.3
[2025-01-11 08:14] LABS: Add Manual Diff / Slide Review NO; Basophils Absolute Auto 100 /uL (0-100); Basophils Percent Auto 1.3 % (0-2); Eosinophils Absolute Auto 200 /uL (0-450); Eosinophils Percent Auto 2.2 % (2-4); Hematocrit 34.3 % (36-46); Hemoglobin 11.1 g/dL (12.0-16.0); Lymphocytes Absolute Auto 1900 /uL (1100-4500); Lymphocytes Percent Auto 20.5 % (25-40); Mean Corpuscular HGB Conc 32.5 % (30-36); Mean Corpuscular Hemoglobin 24.4 PG (26-34); Mean Corpuscular Volume 75.2 fL (80-100); Monocytes Absolute Auto 700 /uL (0-900); Monocytes Percent Auto 7.5 % (3-14); Neutrophils Absolute Auto 6400 /uL (1500-7000); Neutrophils Percent Auto 68.5 % (50-75); Platelet Count 300 X10^3/uL (150-400); Red Blood Cell Count 4.56 X10^6/uL (4.0-5.2); Red Cell Distribution Width 16.3 % (11.6-14.8); White Blood Cell Count 9.3 X10^3/uL (4.5-11.0)
[2025-01-11 09:00] LABS: Alanine Aminotransferase 18 IU/L (<35); Albumin 3.8 g/dL (3.5-5.0); Albumin Globulin Ratio 1.3 (1.0-2.8); Alkaline Phosphatase 96 U/L (38-126); Aspartate Aminotransferase 21 IU/L (14-36); Bilirubin Total 0.6 mg/dL (0.2-1.3); Blood Urea Nitrogen 20 mg/dL (7-17); Calcium 9.1 mg/dL (8.4-10.2); Carbon Dioxide 22 mmol/L (22-32); Chloride 105 mmol/L (98-107); Cholesterol 150 mg/dL (140-199); Estimated Glomerular Filt Rate > 60 mL/min (>60); Glucose 119 mg/dL (70-99); HDL Cholesterol 40 mg/dL (40-60); HEMOLYSIS < 15 (0-50); LDL Cholesterol Calculated 89 mg/dL (<100); Potassium 4.4 mmol/L (3.4-5.1); Sodium 137 mmol/L (137-145); Total Protein 6.8 g/dL (6.3-8.2); Triglycerides 107 mg/dL (35-150)
[2025-01-11 09:09] LABS: NT-proBNP (BNP-Adult 18+) 406 pg/mL (<125)
== END ==
PROVIDERS: PCP Family Medicine; Referring Provider Internal Medicine; Visit Provider Internal Medicine
DX: I48.19 Other persistent atrial fibrillation (principal); I25.119 Atherosclerotic heart disease of native coronary artery with unspecified angina pectoris
CPT/HCPCS: 36415; 80053; 80061; 83880; 85025

== ENCOUNTER → 2025-02-08 06:34 | Outpatient (CLI) | payer MEDICARE, SELFPAY ==
[2024-07-08 17:27] VITALS: BMI 32.3
--- NOTE | 2025-02-08 06:35 | DI.ECHO.S_ITS ---
[facility] : : [address] : : [place] : : [id number] : : Phone: [phone] Echocardiogram Report + + :Name: CRISTOPHER DAWKINS Study Date: 02/08/2025 Height: 60 in : :[facility] ReadingLocation: Weight: 175 lb : : Gender: Female BSA: 1.8 m2 : :: 1950 Age: 74 yrs BP: 141/87 mmHg: :Reason For Study: CORONARY ARTERY DISEASE : :Ordering Physician: ROSARIO NAIR Performed By: Jacob Munson : :Referring: ROSARIO NAIR : + + Interpretation Summary TDS - BODY HABITUS, LUNG INTERFERENCE 1. The left ventricular contractility is normal. Estimated ejection fraction is greater than 55% with no segmental wall motion abnormalities. No LVH. Mild concentric LVH. Indeterminant diastolic function. 2. The right ventricular contractility is normal. 3. All cardiac chambers are of normal size. 4. Trace to mild mitral regurgitation. 5. Aortic valvular sclerosis without significant stenosis nor insufficiency. 6. No obvious intracardiac shunts. 7. No intracardiac masses nor thrombi noted. 8. No hemodynamically significant pericardial effusion. 9. Low right-sided filling pressures. Conclusion: Normal biventricular systolic function with no significant valvular abnormalities. When compared with previous echocardiogram, no significant changes have occurred. Procedure: A two-dimensional transthoracic echocardiogram with color flow and Doppler was performed. A contrast injection of Definity was performed to improve assessment of LV function. The study quality was technically difficult. Comparison is made with the echocardiogram of 04/20/2024. The patient was in normal sinus rhythm during the exam. Left Ventricle: The left ventricle is normal in size. Left ventricular wall thickness is mildly increased. There is no ventricular septal defect visualized. The ejection fraction is estimated to be 55-60%. Right Ventricle: The right ventricle is not well visualized. Atria: The left atrium is mildly dilated. Right atrium not well visualized. There is no Doppler evidence for an interatrial shunt. Mitral Valve: The mitral valve leaflets are mildly calcified. The mitral valve leaflets appear mildly thickened, but open well. There is mild to moderate mitral annular calcification. There is mild mitral regurgitation. Aortic Valve: The aortic valve is trileaflet. The aortic valve is moderately calcified. No aortic regurgitation is present. Tricuspid Valve: The tricuspid valve is not well visualized, but is grossly normal. There is trace tricuspid regurgitation. The right ventricular systolic pressure is estimated to be at least 24 mmHg based on an estimated right atrial pressure of 3 mm Hg. Pulmonic Valve: The pulmonic valve is not well visualized. There is no pulmonic valvular regurgitation. Great Vessels: The aortic root is normal size. The dimensions of the ascending aorta are normal. The pulmonary artery is normal size. The IVC is of normal diameter and collapses greater than 50% with a sniff. This suggests a low right atrial pressure of 3 mm Hg. Pericardium/ Pleura There is no pericardial effusion. MMode/2D Measurements & Calculations LVIDd: 4.2 cm LVOT diam: 1.8 cm LVIDs: 3.3 cm Ao root diam: 3.2 cm FS: 21.4 % asc Aorta Diam: 3.4 cm EPSS: 0.55 cm Ao Arch Diam (Prox Trans): 1.4 cm IVSd: 1.1 cm LVPWd: 1.1 cm LV powell. diameter/BSA (cm/m^2): 2.4 LV sys. diameter/BSA (cm/m^2): 1.9 LA A2 area: 14.7 cm2 IVC diam: 1.2 cm LA A4 area: 19.4 cm2 LA length (vol): 5.0 cm LA vol: 48.7 ml LA vol index: 27.6 ml/m2 Doppler Measurements & Calculations Ao V2 max: 172.7 cm/sec LVOT Max Vivek: 98.8 cm/sec Ao V2 mean: 116.1 cm/sec LV V1 max P.9 mmHg Ao max P.9 mmHg LV V1 VTI: 24.1 cm Ao mean P.2 mmHg MIGUEL(I,D): 1.7 cm2 Ao V2 VTI: 35.8 cm MIGUEL(V,D): 1.4 cm2 sev ratio: 0.67 MIGUEL indexed to BSA (cm^2/m^2): 0.94 MV E max vivek: 81.8 cm/sec TR max vivek: 279.8 cm/sec MV A max vivek: 87.6 cm/sec TR max P.3 mmHg MV E/A: 0.93 PA V2 max: 109.5 cm/sec Med Peak E' Vivek: 4.9 cm/sec PA V2 mean: 81.5 cm/sec E/E' med: 16.8 PA mean P.9 mmHg Lat Peak E' Vivek: 6.9 cm/sec PA pr(Accel): 63.6 mmHg E/E' lat: 11.9 E/e' average: 14.3 MV dec time: 0.17 sec SV(LVPRESTON): 59.2 ml Reading Physician:LUIS
== END ==
PROVIDERS: PCP Family Medicine; Referring Provider Internal Medicine; Visit Provider Internal Medicine
DX: I25.119 Atherosclerotic heart disease of native coronary artery with unspecified angina pectoris (principal); I34.81 Nonrheumatic mitral (valve) annulus calcification; I34.0 Nonrheumatic mitral (valve) insufficiency
CPT/HCPCS: C8929; Q9957

== ENCOUNTER → 2025-02-17 14:19 | Outpatient (CLI) | payer MEDICARE, SELFPAY ==
[2024-07-08 17:27] VITALS: BMI 32.3
[2025-02-17 15:34] LABS: BUN Creatinine Ratio 18.8 (6-22); Blood Urea Nitrogen 15 mg/dL (7-17); Carbon Dioxide 26 mmol/L (22-32); Chloride 104 mmol/L (98-107); Estimated Glomerular Filt Rate > 60 mL/min (>60); Glucose 111 mg/dL (70-99); HEMOLYSIS < 15 (0-50); Potassium 4.4 mmol/L (3.4-5.1); Sodium 137 mmol/L (137-145)
== END ==
PROVIDERS: PCP Family Medicine; Referring Provider Internal Medicine Cardiovascular Disease; Visit Provider Internal Medicine Cardiovascular Disease
DX: I25.10 Atherosclerotic heart disease of native coronary artery without angina pectoris (principal)
CPT/HCPCS: 36415; 80048

== ENCOUNTER 2025-04-04 16:13 | Emergency (ER) | payer OTHER, SELFPAY ==
[2024-07-08 17:27] VITALS: BMI 32.3
[2025-04-04] VITALS (22 sets, daily range): BP systolic 137–217; BP diastolic 64–87; PULSE 65–92; RESP 16–37; O2SAT 98–100; BMI 34.0
--- NOTE | 2025-04-04 16:23 | DI.RAD.S_ITS ---
PROCEDURE: XR CHEST 1V INDICATIONS: Chest Pain TECHNIQUE: One view of the chest was acquired. COMPARISON: [facility], CR, XR CHEST 1V, 07/08/2024, 13:25. FINDINGS: Surgical changes and devices: Median sternotomy and CABG changes. Lungs and pleura: Lungs are clear. No pleural effusions or pneumothorax. Mediastinum: Mediastinal contours appear normal. Heart size is normal. Bones and chest wall: No suspicious bony lesions. Overlying soft tissues appear unremarkable. IMPRESSION: No acute cardiopulmonary abnormality is seen. Dictated by: Gaby Jurado M.D. on 04/04/2025 at 17:47 Approved by: Gaby Jurado M.D. on 04/04/2025 at 17:47
--- NOTE | 2025-04-04 16:23 | EKG_ITS ---
[place] [id number] [address] [place] [id number] Test Date: 2025-04-04 Pat Name: Elina العلي Department: 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
[2025-04-04 17:08] LABS: Add Manual Diff / Slide Review NO; Hematocrit 31.4 % (36-46); Hemoglobin 10.3 g/dL (12.0-16.0); Lymphocytes Absolute Auto 2800 /uL (1100-4500); Mean Corpuscular HGB Conc 32.8 % (30-36); Mean Corpuscular Hemoglobin 23.5 PG (26-34); Mean Corpuscular Volume 71.7 fL (80-100); Platelet Count 296 X10^3/uL (150-400)
[2025-04-04 17:12] LABS: INR 1.2 (0.9-1.3); Prothrombin Time 13.6 SECONDS (9.4-12.5)
[2025-04-04 17:15] LABS: PTT Partial Thromboplastin Tim 33 SECONDS (25.1-36.5)
[2025-04-04 17:16] LABS: Alanine Aminotransferase 15 IU/L (<35); Albumin 4.2 g/dL (3.5-5.0); Albumin Globulin Ratio 1.1 (1.0-2.8); Alkaline Phosphatase 99 U/L (38-126); Blood Urea Nitrogen 12 mg/dL (7-17); Calcium 9.1 mg/dL (8.4-10.2); Carbon Dioxide 23 mmol/L (22-32); Chloride 105 mmol/L (98-107); Creatine Kinase 78 U/L (30-135); Estimated Glomerular Filt Rate > 60 mL/min (>60); Globulin 3.8 g/dL (1.7-4.1); Glucose 104 mg/dL (70-99); HEMOLYSIS < 15 (0-50); Lipase 141 U/L (23-300); Magnesium 2.0 mg/dL (1.6-2.3); Potassium 4.2 mmol/L (3.4-5.1); Sodium 137 mmol/L (137-145); Total Protein 8.0 g/dL (6.3-8.2)
[2025-04-04 17:28] LABS: NT-proBNP (BNP-Adult 18+) 1240 pg/mL (<125); Troponin I < 0.012 ng/mL (0.01-0.034)
--- NOTE | 2025-04-04 19:42 | ED.SOB ---
HPI - SOB/Dyspnea General Chief Complaint: Shortness of Breath/Dyspnea Stated Complaint: SOB and fatigue after heart cath Time Seen by Provider: 04/04/25 16:14 Source: patient Mode of arrival: Ambulatory Limitations: no limitations History of Present Illness HPI Narrative: 74-year-old female with history of congestive heart failure, CAD, prior CABG, atrial fibrillation, chronic anticoagulation, cigarette smoking history, COPD/asthma. Reports that she had cardiac catheterization couple of weeks ago with Dr. Nair that was reportedly negative, feels more short of breath. Denies fevers and chills. Denies pain swelling to legs. Requesting refill of her Lasix medication, had been prescribed Bumex diuretic she thinks by mistake, and prefers to be on the furosemide/Lasix medication, not taking the Bumex medication. Related Data Home Medications ?Medication ?Instructions ?Recorded ?Confirmed omeprazole 20 mg capsule,delayed 20 mg PO BID 03/15/24 02/23/25 release cetirizine 10 mg chewable tablet 10 mg PO DAILY 04/26/24 02/23/25 aspirin 81 mg tablet,delayed 81 mg PO DAILY thinner 07/08/24 02/23/25 release evolocumab 140 mg/mL subcutaneous 140 mg SUBCUT 1XD 07/08/24 02/23/25 syringe (Repatha Syringe) olopatadine 0.2 % eye drops 1 drp EYE-BOTH DAILY PRN Dry Eye(S) 07/08/24 02/23/25 amiodarone 200 mg tablet 200 mg PO BID 08/05/24 02/23/25 metoprolol tartrate 25 mg tablet 50 mg PO BID 08/05/24 02/23/25 spironolactone 25 mg tablet 25 mg PO BID 08/05/24 02/23/25 Previous Rx's ?Medication ?Instructions ?Recorded gabapentin 300 mg capsule 600 mg (2 x 300 mg) PO BID #360 04/11/24 caps fluticasone propionate 50 1 spray intranasal BID #16 grams 05/27/24 mcg/actuation nasal spray,suspension (Flonase Allergy Relief) apixaban 5 mg tablet (Eliquis) 5 mg PO BID #60 tabs 07/09/24 ondansetron 4 mg disintegrating 4 mg PO DAILY PRN nausea and 02/23/25 tablet vomiting #30 tabs pyridoxine (vitamin B6) 50 mg 50 mg PO BID #60 tabs 02/23/25 tablet furosemide 20 mg tablet 20 mg PO BID #60 tabs 04/04/25 Allergies Allergy/AdvReac Type Severity Reaction Status Date / Time meclizine Allergy ITCHING Verified 04/04/25 16:33 doxycycline AdvReac Gastrointestinal Verified 04/04/25 16:33 Upset hydrocodone AdvReac Nausea Verified 04/04/25 16:33 minocycline AdvReac Diarrhea Verified 04/04/25 16:33 oxycodone AdvReac ITCHING Verified 04/04/25 16:33 pravastatin AdvReac Nausea Verified 04/04/25 16:33 rosuvastatin AdvReac Gastrointestinal Verified 04/04/25 16:33 Upset Sulfa (Sulfonamide AdvReac Nausea Verified 04/04/25 16:33 Antibiotics) Patient History Medical History (Updated 04/04/25 @ 22:43 by Darwin Wing MD) Atrial fibrillation Dyspnea Surgical History History of cardiac catheterization (11/2010) History of appendectomy History of hysterectomy (~1987) S/P CABG x 3 (03/09/14) History of carpal tunnel release of both wrists Social History marital status: number of children: 3 household members: spouse lives independently: Yes Smoking Status: Former smoker Tobacco: How many years used: 5 alcohol intake: current substance use type: does not use Smoking Status: Former smoker tobacco type: cigarettes alcohol intake frequency: holidays/special occasions only Exam Narrative Exam Narrative: GENERAL: Well-developed patient, in mild distress. HEAD: Atraumatic. Normocephalic. EYES: Pupils equal round and reactive. Extraocular motions intact. No scleral icterus. No injection or drainage. ENT: Nose without bleeding, purulent drainage. Throat without erythema, tonsillar hypertrophy or exudate. Airway patent. NECK: Trachea midline. Non tender CARDIOVASCULAR: Regular rate and rhythm without murmurs, gallops, or rubs. RESPIRATORY: Clear to auscultation. Breath sounds equal bilaterally. No wheezes, rales, or rhonchi. Shallow frequent respirations, apparently both patient and daughter at bedside state that this is the way she has been breathing for years, not particularly increased in rate or distress. GASTROINTESTINAL: Abdomen soft, non-tender, nondistended. EXTREMITIES: No edema or joint tenderness. BACK: Nontender without deformity or crepitance. No flank tenderness. NEURO: AOx3. Motor functions grossly nonfocal. SKIN: No rash or erythema of visible areas Initial Vital Signs Initial Vital Signs: Vital Signs Pulse Rate 70 04/04/25 16:24 Respiratory Rate 24 04/04/25 16:24 Blood Pressure 177/74 H 04/04/25 16:24 Pulse Oximetry 99 04/04/25 16:24 Oxygen Delivery Method Room Air 04/04/25 16:24 Course Orders Ordered: ED Orders 04/04/25 21:35 D Dimer Stat Discontinued Medications Acetaminophen (Acetaminophen 325 Mg Tablet) 650 mg PO NOW ONE Stop: 04/04/25 20:07 Last Admin: 04/04/25 20:10 Dose: 650 mg Documented By: DENEEN Albuterol/Ipratropium (Albuterol/Ipratropium 3 Ml Ampul) 3 ml INH NOW ONE Stop: 04/04/25 19:44 Last Admin: 04/04/25 20:02 Dose: 3 ml Documented By: Aspirin (Aspirin 81 Mg Chew Tab) 324 mg PO NOW ONE Stop: 04/04/25 16:24 Last Admin: 04/04/25 19:13 Dose: Not Given Documented By: JONAS Furosemide (Furosemide 40 Mg/4 Ml Vial) 40 mg IV NOW ONE Stop: 04/04/25 19:44 Last Admin: 04/04/25 19:57 Dose: 40 mg Documented By: DENEEN Vital Signs Vital signs: Vital Signs - 8 hr 04/04/25 20:00 04/04/25 20:03 04/04/25 20:41 Pulse Rate 69 72 Respiratory Rate 26 H 16 25 H Blood Pressure Pulse Oximetry 100 Oxygen Delivery Method Room Air 04/04/25 20:43 04/04/25 20:43 04/04/25 21:00 Pulse Rate 78 82 Respiratory Rate 24 Blood Pressure 159/70 H Pulse Oximetry 99 98 Oxygen Delivery Method 04/04/25 21:01 04/04/25 21:01 04/04/25 21:30 Pulse Rate 92 H 85 Respiratory Rate 25 H 25 H Blood Pressure 137/64 Pulse Oximetry 98 99 Oxygen Delivery Method Room Air Room Air 04/04/25 21:30 04/04/25 22:53 04/04/25 22:54 Pulse Rate 81 Respiratory Rate 25 H Blood Pressure 143/87 H Pulse Oximetry 98 98 Oxygen Delivery Method Room Air 04/04/25 22:54 Pulse Rate Respiratory Rate Blood Pressure 145/64 H Pulse Oximetry Oxygen Delivery Method MDM - SOB/Dyspnea Lab Data Attestation: I reviewed the patient's lab results. Lab results narrative: White blood cell count 9400, hemoglobin 10.3, platelets adequate. Glucose 104. Renal function, serum CO2, electrolytes normal. Liver functions and lipase normal. Troponin negative/unmeasurable. BNP 1240 elevated compared to December 2024, but less than measured values July 2024. D-dimer 302 not elevated. 04/04/25 16:55 04/04/25 16:55 Labs: Lab Results 04/04/25 04/04/25 Range/Units 16:55 21:35 WBC 9.4 (4.5-11.0) X10^3/uL RBC 4.38 (4.0-5.2) X10^6/uL Hgb 10.3 L (12.0-16.0) g/dL Hct 31.4 L (36-46) % MCV 71.7 L (80-100) fL MCH 23.5 L (26-34) PG MCHC 32.8 (30-36) % RDW 15.8 H (11.6-14.8) % Plt Count 296 (150-400) X10^3/uL Neut % (Auto) 59.2 (50-75) % Lymph % (Auto) 29.8 (25-40) % Vance % (Auto) 7.8 (3-14) % Eos % (Auto) 1.9 L (2-4) % Baso % (Auto) 1.3 (0-2) % Neut # (Auto) 5600 (1200-1214) /uL Lymph # (Auto) 2800 (7087-9015) /uL Vance # (Auto) 700 (0-900) /uL Eos # (Auto) 200 (0-450) /uL Baso # (Auto) 100 (0-100) /uL PT 13.6 H (9.4-12.5) SECONDS INR 1.2 (0.9-1.3) APTT 33 (25.1-36.5) SECONDS D-Dimer 302 (<500) ng/ml Sodium 137 (137-145) mmol/L Potassium 4.2 (3.4-5.1) mmol/L Chloride 105 (98-107) mmol/L Carbon Dioxide 23 (22-32) mmol/L BUN 12 (7-17) mg/dL Creatinine 0.91 (0.52-1.04) mg/dL Estimated GFR > 60 (>60) mL/min BUN/Creatinine Ratio 13.2 (6-22) Glucose 104 H (70-99) mg/dL Calcium 9.1 (8.4-10.2) mg/dL Magnesium 2.0 (1.6-2.3) mg/dL Total Bilirubin 0.4 (0.2-1.3) mg/dL AST 26 (14-36) IU/L ALT 15 (<35) IU/L Alkaline Phosphatase 99 (38-126) U/L Total Creatine Kinase 78 (30-135) U/L Troponin I < 0.012 (0.01-0.034) ng/mL NT-Pro-B Natriuret Pep 1240 H (<125) pg/mL Total Protein 8.0 (6.3-8.2) g/dL Albumin 4.2 (3.5-5.0) g/dL Globulin 3.8 (1.7-4.1) g/dL Albumin/Globulin Ratio 1.1 (1.0-2.8) Lipase 141 (23-300) U/L Imaging Data Chest x-ray: Radiologist's Impression: [address] [address] XRay Report Signed Patient: Elina العلي MR#: [id number] : 1950 Acct:[id number] Age/Sex: 74 / F Date of Service: 04/04/25 Loc: ED Accession Number: [id number] Procedure: XR chest 1V Ordering Provider: Yan Najera MD PROCEDURE: XR CHEST 1V INDICATIONS: Chest Pain TECHNIQUE: One view of the chest was acquired. COMPARISON: [facility], , XR CHEST 1V, 07/08/2024, 13:25. FINDINGS: Surgical changes and devices: Median sternotomy and CABG changes. Lungs and pleura: Lungs are clear. No pleural effusions or pneumothorax. Mediastinum: Mediastinal contours appear normal. Heart size is normal. Bones and chest wall: No suspicious bony lesions. Overlying soft tissues appear unremarkable. IMPRESSION: No acute cardiopulmonary abnormality is seen. Dictated by: Gaby Jurado M.D. on 04/04/2025 at 17:47 Approved by: Gaby Jurado M.D. on 04/04/2025 at 17:47 ECG Data Attestation: I personally reviewed and interpreted this ECG as follows: Interpretation: 1629, normal sinus rhythm with rate of 68, no obvious ST segment elevation or depression changes. SD 132, QRS 76, QTC 423. MDM Narrative Medical decision making narrative: 74-year-old female with history of chronic lung disease, feels short of breath. History of congestive heart failure and lung disease. Had confusion about previous diuretic and when apparently was prescribed Bumex which she does not take, wants to take furosemide, requesting refill. Has some shortness of breath, shallow breathing, although apparently this is how she has been breathing for quite a number of years, per patient and daughter at bedside. EKG no acute changes, sinus rhythm Chest x-ray no acute changes. Lab data:White blood cell count 9400, hemoglobin 10.3, platelets adequate. Glucose 104. Renal function, serum CO2, electrolytes normal. Liver functions and lipase normal. Troponin negative/unmeasurable. BNP 1240 elevated compared to December 2024, but less than measured values July 2024. D-dimer 302 not elevated. Offered repeat interval troponin, she does not want to have this done. She would like to go home now. Given IV Lasix. Advised to continue her diuretic medication regimen, in her chronic lung medications, and all her other chronic medications as prescribed. Follow up with PCP advised if not improved in the next couple of days. Return precautions discussed. Discharged home per patient request. Refill Lasix 20 mg twice daily 1 month supply sent to her pharmacy, per request. Discharge Plan Departure Patient Disposition: Home Clinical Impression: Shortness of breath, Congestive heart failure, Medication refill Activity Restrictions/Additional Instructions: Shortness of breath, history of chronic lung disease, coronary artery disease, prior smoker, congestive heart failure. With shortness of breath, breathing shallowly and fast, although apparently this is how you usually breathe for quite some time. No crackles or wheezing that I could hear on your lung exam today. Chest x-ray showed no acute changes. BNP test that has to do with congestive heart failure was elevated compared to December 2024 studies but not as high as it was in July 2024. EKG and blood testing not suggestive of heart attack at this time. You did not want to stay for further troponin blood testing. You were given IV Lasix while here in the emergency department, and requested refill of oral Lasix/furosemide to take 20 mg twice daily, 60 tablets or 1 month supply was sent as prescription to your pharmacy. Take medications as prescribed. Recheck with your regular doctor in the next couple of days to reassess your breathing and other symptoms. Continue your other chronic medications as planned. Return earlier to this/nearest emergency department for any change worsening symptoms or any concerns prior. Prescriptions: New furosemide 20 mg tablet 20 mg PO BID Qty: 60 0RF No Action metoprolol tartrate 25 mg tablet 50 mg PO BID spironolactone 25 mg tablet 25 mg PO BID amiodarone 200 mg tablet 200 mg PO BID pyridoxine (vitamin B6) 50 mg tablet 50 mg PO BID Qty: 60 3RF ondansetron 4 mg tablet,disintegrating 4 mg PO DAILY PRN (Reason: nausea and vomiting) Qty: 30 1RF omeprazole 20 mg capsule,delayed release(DR/EC) 20 mg PO BID cetirizine 10 mg tablet,chewable 10 mg PO DAILY gabapentin 300 mg capsule 600 mg PO BID Qty: 360 1RF aspirin 81 mg Tablet,Delayed Release (Dr/Ec) 81 mg PO DAILY olopatadine 0.2 % drops 1 drp EYE-BOTH DAILY PRN (Reason: Dry Eye(S)) Repatha Syringe 140 mg/mL syringe 140 mg SUBCUT 1XD Patient Comments: [NO ORIGINAL SIG] Eliquis 5 mg Tablet 5 mg PO BID Qty: 60 1RF fluticasone propionate [Flonase Allergy Relief] 50 mcg/actuation spray,suspension 1 spray intranasal BID Qty: 16 3RF Rx Instructions: administer into each nostril Referrals: Jacob Seals MD [Primary Care Provider, Family Practice] Stand Alone Forms: Patient Portal/API
[2025-04-04] MEDS: FUROSEMIDE 40 MG/4 ML VIAL IV (19:57)
[2025-04-04] MEDS: ALBUTEROL/IPRATROPIUM 3 ML AMPUL INH (20:02)
[2025-04-04] MEDS: ACETAMINOPHEN 325 MG TABLET 650 MG PO (20:10)
== END 2025-04-04 22:59 | disposition home or self-care (01) ==
PROVIDERS: Emergency Medicine; Emergency Provider Emergency Medicine; PCP Family Medicine
DX: R06.02 Shortness of breath (principal); R07.9 Chest pain, unspecified; I50.9 Heart failure, unspecified; Z76.0 Encounter for issue of repeat prescription
CPT/HCPCS: 36415; 71045; 80053; 82550; 83690; 83735; 83880; 84484; 85025; 85379; 85610; 85730; 93005; 94640; 96374; 99284; J1938

== ENCOUNTER → 2025-06-08 14:49 | Outpatient (CLI) | payer OTHER, SELFPAY ==
[2024-07-08 17:27] VITALS: BMI 32.3
[2025-06-08 16:09] LABS: Hemoglobin A1C% w Est Avg Glu 6.8 % (4.0-6.0)
[2025-06-08 16:27] LABS: Alanine Aminotransferase 16 IU/L (<35); Albumin 4.1 g/dL (3.5-5.0); Albumin Globulin Ratio 1.2 (1.0-2.8); Alkaline Phosphatase 102 U/L (38-126); Blood Urea Nitrogen 16 mg/dL (7-17); Calcium 9.2 mg/dL (8.4-10.2); Carbon Dioxide 22 mmol/L (22-32); Chloride 99 mmol/L (98-107); Estimated Glomerular Filt Rate 56 mL/min (>60); Globulin 3.5 g/dL (1.7-4.1); Glucose 141 mg/dL (70-99); HEMOLYSIS < 15 (0-50); Potassium 4.4 mmol/L (3.4-5.1); Sodium 132 mmol/L (137-145); Total Protein 7.6 g/dL (6.3-8.2)
== END ==
PROVIDERS: PCP Family Medicine; Referring Provider Family Medicine; Visit Provider Nurse Practitioner
DX: E11.69 Type 2 diabetes mellitus with other specified complication (principal); E78.5 Hyperlipidemia, unspecified; I10 Essential (primary) hypertension; I50.32 Chronic diastolic (congestive) heart failure
CPT/HCPCS: 36415; 80053; 82043; 82570; 83036

== ENCOUNTER → 2025-06-09 11:40 | Outpatient (CLI) | payer OTHER, SELFPAY ==
[2024-07-08 17:27] VITALS: BMI 32.3
--- NOTE | 2025-06-09 11:44 | DI.RAD.S_ITS ---
PROCEDURE: XR CHEST 2V INDICATIONS: SoB TECHNIQUE: 2 views of the chest were acquired. COMPARISON: [facility], CR, XR CHEST 1V, 04/04/2025, 16:49. [facility], CR, XR CHEST 1V, 07/08/2024, 13:25. FINDINGS: Surgical changes and devices: Median sternotomy wires. Lungs and pleura: Lungs are clear. No pleural effusions or pneumothorax. Mediastinum: Mediastinal contours are normal. Heart size is prominent, stable. Bones and chest wall: No suspicious bony abnormalities. Soft tissues appear unremarkable. IMPRESSION: No acute cardiopulmonary abnormality is seen. Dictated by: Des Vazquez M.D. on 06/09/2025 at 15:41 Approved by: Des Vazquez M.D. on 06/09/2025 at 15:42
== END ==
PROVIDERS: PCP Family Medicine; Referring Provider Nurse Practitioner; Visit Provider Nurse Practitioner
DX: I48.19 Other persistent atrial fibrillation (principal); I50.32 Chronic diastolic (congestive) heart failure; R06.02 Shortness of breath
CPT/HCPCS: 71046

== ENCOUNTER → 2025-06-30 14:45 | Outpatient (CLI) | payer OTHER, SELFPAY ==
[2024-07-08 17:27] VITALS: BMI 32.3
[2025-06-30 15:49] LABS: Blood Urea Nitrogen 16 mg/dL (7-17); Calcium 9.0 mg/dL (8.4-10.2); Carbon Dioxide 24 mmol/L (22-32); Chloride 101 mmol/L (98-107); Estimated Glomerular Filt Rate 51 mL/min (>60); Glucose 89 mg/dL (70-99); HEMOLYSIS 41 (0-50); Potassium 4.4 mmol/L (3.4-5.1); Sodium 134 mmol/L (137-145)
== END ==
PROVIDERS: PCP Family Medicine; Referring Provider Family Medicine; Visit Provider Nurse Practitioner
DX: E11.69 Type 2 diabetes mellitus with other specified complication (principal); E78.5 Hyperlipidemia, unspecified; I10 Essential (primary) hypertension; I50.32 Chronic diastolic (congestive) heart failure
CPT/HCPCS: 36415; 80048